=== PATIENT | female | born 1980 | race Two or more races ===

== ENCOUNTER 2019-02-10 14:15 | Emergency (ER) | payer MEDICAID ==
[~2019-02-10] VITALS: Ht 172.7 cm; Wt 126.1 kg
[2019-02-10 14:21] VITALS: BP 144/78
[2019-02-10] MEDS ORDERED: KETOROLAC TROMETH 60MG/2ML VIAL IM ONE (14:45)
== END 2019-02-10 15:11 | disposition home or self-care (01) ==
LOC: ER 14:23
DX: S39.012A Strain of muscle, fascia and tendon of lower back, initial encounter (principal); X50.1XXA Overexertion from prolonged static or awkward postures, initial encounter; Y93.89 Activity, other specified; Y92.89 Other specified places as the place of occurrence of the external cause; Y99.8 Other external cause status
CPT/HCPCS: 96372; 99283; J1885

== ENCOUNTER → 2020-03-23 | Emergency (ER) | payer MEDICAID | END | disposition left against medical advice (07) | LOC: ER 18:52 | DX: R10.9 Unspecified abdominal pain (principal); Z53.21 Procedure and treatment not carried out due to patient leaving prior to being seen by health care provider ==